=== PATIENT | female | born 1985 | race African-American/Black ===

== ENCOUNTER 2016-12-24 10:15 | Emergency (ER) | payer MEDICAID ==
[~2016-12-24] VITALS: Ht 170.2 cm; Wt 75.0 kg
[~2016-12-24 10:15] MED LIST: COMPTAB16 PO
[2016-12-24 10:17] VITALS: BP 107/77; PULSE 88; RESP 14; TEMP 98.4; O2SAT 98
[2016-12-24] MEDS ORDERED: ANTIVIRAL (10:33)
--- NOTE | 2016-12-24 10:43 | PD ---
HPI Chief Complaint: Cold / Flu Symptoms Time Seen by Provider: 10:36 Travel History International Travel<30 days: No Contact w/Intl Traveler<30days: No Traveled to known affect area: No History of Present Illness HPI 31 year old female presents to the emergency department for evaluation of flu like symptoms for 2 days. She reports cough, congestion, chills, body aches. No documented fevers. She reports vomiting, last time yesterday. She also reports diarrhea, 5 episodes today. She does report history of HIV, currently on antivirals, unsure of last CD4 count, but states she follows up, is compliant with her antivirals, and has never had opportunistic infection. Patient denies any abdominal pain. No dysuria. She denies chance of . She denies any other complaints at this time. PFSH Past Medical History Autoimmune Disease: Yes (HIV +) Cancer: No Cardiovascular Problems: No Diminished Hearing: No Endocrine: No Gastrointestinal Disorders: No Genitourinary: Yes (H/O STD) Musculoskeletal: No Neurologic: No Reproductive: No Respiratory: No ?: Not : 3 Para: 3 Miscarriage: 0 : 0 Past Surgical History Other Surgery: No Social History Alcohol Use: No Tobacco Use: No Substance Use: No Allergies-Medications (Allergen,Severity, Reaction): Coded Allergies: No Known Allergies (Verified , 12/24/16) Reported Meds & Prescriptions Reported Meds & Active Scripts Active Reported [Antiviral ] Review of Systems Except as stated in HPI: all other systems reviewed are Neg Physical Exam Narrative GENERAL: Well-developed well-nourished female patient, ambulatory. Afebrile. SKIN: Warm and dry. HEAD: Normocephalic. Atraumatic. EYES: No scleral icterus. No injection or drainage. NECK: Supple, trachea midline. No JVD or lymphadenopathy. CARDIOVASCULAR: Regular rate and rhythm without murmurs, gallops, or rubs. RESPIRATORY: Breath sounds equal bilaterally. No accessory muscle use. Lungs sounds are clear to auscultation. GASTROINTESTINAL: Abdomen soft, non-tender, nondistended. MUSCULOSKELETAL: No cyanosis, or edema. BACK: Nontender without obvious deformity. No CVA tenderness. Data Data Last Documented VS Vital Signs Date Time Temp Pulse Resp B/P Pulse Ox O2 Delivery O2 Flow Rate FiO2 12/24/16 10:34 98 Room Air 12/24/16 10:17 98.4 88 14 107/77 Orders Chest, Single Ap (12/24/16 ) Influenzae A/B Antigen (12/24/16 10:33) Ondansetron Odt (Zofran Odt) (12/24/16 10:45) MDM Medical Decision Making Medical Screen Exam Complete: Yes Emergency Medical Condition: Yes Medical Record Reviewed: Yes Interpretation(s) Last Impressions Chest X-Ray 12/24/16 0000 Signed Impressions: Service Date/Time: Saturday, December 24, 2016 10:42 - CONCLUSION: Normal examination. Gregory Dale MD Differential Diagnosis Influenza versus pneumonia versus bronchitis versus URI Narrative Course 31-year-old female presents to the emergency department for evaluation of flulike symptoms for 2 days. She is HIV positive. She does appear well physical examination vital signs are stable. Patient is given Zofran 4 mg ODT. Chest x-ray and influenza are ordered and pending. Chest x-ray is normal. Influenza is negative. Patient will be discharged with a prescription for Zofran and Imodium. She is instructed to follow with her primary care physician. She should plenty of fluids, rest. She is to return for any acute worsening of symptoms. Patient is agreeable to this plan. Diagnosis Primary Impression: Viral syndrome Referrals: Primary Care Physician call for appointment Patient Instructions: General Instructions, Viral Syndrome (ED) Departure Forms: School Release, Return to School Date: Dec 27, 2016 Tests/Procedures, Work Release Enter return to work date: Dec 27, 2016 Additional Instructions: Rest. Tylenol/Motrin as needed. Take Zofran as instructed as needed for nausea/vomiting. Take Imodium as directed as needed for diarrhea. Drink plenty of fluids. Follow-up with your primary care physician. Return to the emergency department for any acute worsening of symptoms. Med/Other Pt SpecificInfo: Prescription(s) given Scripts Loperamide (Imodium A-D)2 Mg Tab2 Mg PO DIRECTED PRN (DIARRHEA) #20 TAB Ref 0 One tablet after each loose stool. Not to exceed 8 tablets per day. Prov:Henrietta Major 12/24/16 Ondansetron Odt 4 Mg Tab4 Mg SL Q8HR PRN (Nausea/Vomiting) #16 TAB Ref 0 Prov:Henrietta Major 12/24/16 Disposition: 01 DISCHARGE HOME Condition: Stable Henrietta Major Dec 24, 2016 10:43
[2016-12-24] MEDS ORDERED: ONDANSETRON ODT 4 MG TAB PO ONE (10:45)
--- NOTE | 2016-12-24 10:54 | RADRPT ---
EXAM DATE/TIME: 12/24/2016 10:42 [facility] COMPARISON: No previous studies available for comparison. INDICATIONS : Cough, congestion, fever, nausea, flu like symptoms for 3 days. MEDICAL HISTORY : None. SURGICAL HISTORY : None. ENCOUNTER: Initial ACUITY: 3 days PAIN SCORE: 0/10 LOCATION: Bilateral chest FINDINGS: A single view of the chest demonstrates the lungs to be symmetrically aerated without evidence of mas s, infiltrate or effusion. The cardiomediastinal contours are unremarkable. Osseous structures are intact. CONCLUSION: Normal examination. Gregory Dale MD on December 24, 2016 at 10:52 Board Certified Radiologist. This report was verified electronically.
[2016-12-24] MEDS ORDERED: ONDA4TAB7 SL (12:10)
[2016-12-24] MEDS ORDERED: IMOD2TAB3 PO (12:10)
== END 2016-12-24 12:41 | disposition home or self-care (01) ==
LOC: NEPA 10:15
DX: B34.9 Viral infection, unspecified (principal); R19.7 Diarrhea, unspecified
CPT/HCPCS: 71010; 87804; 99283